=== PATIENT | female | born 1985 | race Asian ===

== ENCOUNTER 2016-10-28 20:13 | Emergency (ER) | payer BC ==
[~2016-10-28] VITALS: Ht 165.1 cm; Wt 68.0 kg
--- NOTE | 2016-10-28 20:40 | NUR ---
"STILL IN RESTROOM" PER FAMILY
--- NOTE | 2016-10-28 20:45 | NUR ---
CALLED FOR TRIAGE; INFORMED BY FAMILY "SHE'S IN THE RESTROOM".
[2016-10-28 20:56] VITALS: BP 102/60
== END 2016-10-28 21:51 | disposition home or self-care (01) ==
LOC: ER 20:16
DX: R11.2 Nausea with vomiting, unspecified (principal)
CPT/HCPCS: 99283; A4606; Q0162; Z7610